=== PATIENT | female | born 1950 | race Caucasian/White ===

== ENCOUNTER 2021-04-22 21:23 | Inpatient (IN) ==
[2021-04-22 22:28] LABS: ABS Eosinophils 0.3 10^3/ul (0-0.6); ABS Lymphocytes 2.1 10^3/ul (1.0-4.8); ABS Monocytes 0.6 10^3/ul (0-0.8); ABS Neutrophils 6.4 10^3/ul (1.5-7.7); Eosinophil % 2.8 %; Hematocrit 42 % (35-47); Mean Corpuscular HGB Conc 33 g/dL (31-36); Mean Corpuscular Hemoglobin 28 pg (27-31); Mean Corpuscular Volume 85 fL (80-97); Mean Platelet Volume 10.6 fL (7.4-10.4); Platelet Count 208 10^3/uL (150-450); Red Blood Count 4.96 10^6 /uL (3.70-4.87); Red Cell Distribution Width 14 % (10-15); White Blood Count 9.4 10^3/uL (3.5-10.8)
[2021-04-22] MEDS: Metoprolol Tartrate 5 mg VIAL 5 ml VIAL (1 mg/ml) IV PRN ×2 (22:36→22:49)
[2021-04-22 22:49] LABS: ALT 18 U/L (7-52); AST 26 U/L (13-39); Albumin/Globulin Ratio 1.4 (1-3); Alkaline Phosphatase 65 U/L (35-149); Anion Gap 9 mmol/L (2-11); Blood Urea Nitrogen 16 mg/dL (6-24); CO2 Carbon Dioxide 22 mmol/L (22-32); Calcium 9.2 mg/dL (8.6-10.3); Chloride 108 mmol/L (101-111); Globulin 2.8 g/dL (2-4); Glucose 126 mg/dL (70-100); Potassium 4.2 mmol/L (3.5-5.0); Sodium 139 mmol/L (135-145); Total Protein 6.8 g/dL (6.4-8.9)
[2021-04-22 22:52] LABS: Troponin I 2.45 ng/mL (<0.03)
[2021-04-22] MEDS ORDERED: Heparin - STEMI 5,000 UNITS/ML 1 ml VIAL IV ONE (22:56)
[2021-04-22] MEDS ORDERED: Iohexol 350 (CONTRAST) 500 ML MDV IV ONE (22:56)
[2021-04-22] MEDS ORDERED: Heparin DRIP 25,000 UNITS BAG 25,000 UNITS/500 ML BAG IV SCH (23:00)
[2021-04-22] MEDS ORDERED: Heparin 5000 UNITS/ML 1 mL VIAL IV SCH (23:00)
[2021-04-23] MEDS ORDERED: Diltiazem IV BAG D5W Premix 125 MG/125 ML BAG IV SCH (01:00)
[2021-04-23] MEDS ORDERED: Digoxin IV 0.5 MG/2 ML AMP (0.25 MG/ML) IV SLOW PU ONE (01:04)
[2021-04-23] MEDS ORDERED: Furosemide 40 mg/4 ml IV VIAL IV SLOW PU ONE (02:09)
[2021-04-23] MEDS: Enoxaparin 60 MG/0.6 ML SYR SUBCUT SCH ×2 (02:18→16:46)
[2021-04-23 03:14] LABS: TSH Ultra Thyroid Stim Horm 2.17 mcIU/mL (0.34-5.60)
[2021-04-23 03:16] LABS: Free T4 1.05 ng/dL (0.61-1.12)
[2021-04-23 03:21] LABS: Total T3 129 ng/dL (87-178)
[2021-04-23] MEDS ORDERED: Midazolam 10 mg/10 ml VIAL 1 mg/ml 10 ml VIAL (10 mg) ONE (04:23)
[2021-04-23] MEDS ORDERED: fentaNYL 100 mcg/2 ml 50 MCG/ML VIAL ONE ×2 (04:23→05:30)
[2021-04-23] MEDS ORDERED: Amiodarone 360 MG IVPREMIX 360 MG/200 ML BAG IV ONE (04:24)
[2021-04-23] MEDS ORDERED: Amiodarone 150 mg IVPREMIX 0 MG/0 ML BAG IV ONE (04:24)
[2021-04-23 04:38] LABS: Hematocrit 43 % (35-47); Hemoglobin 14.1 g/dL (12.0-16.0); Mean Corpuscular HGB Conc 33 g/dL (31-36); Mean Corpuscular Hemoglobin 28 pg (27-31); Mean Corpuscular Volume 86 fL (80-97); Mean Platelet Volume 10.9 fL (7.4-10.4); Platelet Count 249 10^3/uL (150-450); Red Blood Count 5.01 10^6 /uL (3.70-4.87); Red Cell Distribution Width 14 % (10-15); White Blood Count 10.5 10^3/uL (3.5-10.8)
[2021-04-23 04:41] LABS: ABS Lymphocytes 1.9 10^3/ul (1.0-4.8); ABS Monocytes 0.6 10^3/ul (0-0.8); ABS Neutrophils 7.9 10^3/ul (1.5-7.7); Eosinophil % 0.4 %; Nucleated Red Blood Cells % 0.1
[2021-04-23 04:53] LABS: Anion Gap 12 mmol/L (2-11); Blood Urea Nitrogen 15 mg/dL (6-24); CO2 Carbon Dioxide 21 mmol/L (22-32); Calcium 9.2 mg/dL (8.6-10.3); Chloride 106 mmol/L (101-111); Glucose 119 mg/dL (70-100); Potassium 3.7 mmol/L (3.5-5.0); Sodium 139 mmol/L (135-145); eGFR CKD-EPI 95.4 (>60)
[2021-04-23] MEDS ORDERED: .Amiodarone 24HR ONLY IV Protocol Order Note IV ONE (05:44)
[2021-04-23] MEDS ORDERED: Amiodarone 360 MG IVPREMIX 360 MG/200 ML BAG IV SCH ×2 (05:55→11:55)
[2021-04-23] MEDS ORDERED: Potassium Chlor 20 meq TAB.ER PO ONE (08:00)
[2021-04-23] MEDS ORDERED: Amiodarone 400 mg TAB PO SCH (09:00)
[2021-04-23] MEDS: Amiodarone 400 mg TAB PO SCH ×3 (09:53→20:18)
[2021-04-23] MEDS: Potassium Chloride LIQUID 20 MEQ/15 ML LIQUID PO ONE ×2 (16:46→16:55)
[2021-04-24] MEDS: Enoxaparin 60 MG/0.6 ML SYR SUBCUT SCH (06:05)
[2021-04-24 06:55] LABS: ABS Eosinophils 0.4 10^3/ul (0-0.6); ABS Lymphocytes 2.4 10^3/ul (1.0-4.8); ABS Monocytes 0.7 10^3/ul (0-0.8); ABS Neutrophils 5.2 10^3/ul (1.5-7.7); Eosinophil % 4.6 %; Hematocrit 40 % (35-47); Hemoglobin 13.4 g/dL (12.0-16.0); Lymphocyte % 27.9 %; Mean Corpuscular HGB Conc 33 g/dL (31-36); Mean Corpuscular Hemoglobin 28 pg (27-31); Mean Corpuscular Volume 85 fL (80-97); Mean Platelet Volume 11.1 fL (7.4-10.4); Nucleated Red Blood Cells % 0.1; Platelet Count 180 10^3/uL (150-450); Red Blood Count 4.72 10^6 /uL (3.70-4.87); Red Cell Distribution Width 14 % (10-15); White Blood Count 8.7 10^3/uL (3.5-10.8)
[2021-04-24 07:10] LABS: Calcium 8.7 mg/dL (8.6-10.3); Potassium 4.3 mmol/L (3.5-5.0)
[2021-04-24] MEDS ORDERED: Amiodarone 400 mg TAB PO SCH (09:00)
[2021-04-24 11:45] VITALS: BP 104/86
== END 2021-04-24 13:30 | disposition home or self-care (01) | DRG 280 ==
LOC: ED 21:23 → SUATTDRO 04-23 01:56 → ICU 04-23 01:56 → MEDTELE 04-23 16:16
PROVIDERS: ADMIT Student in an Organized Health Care Education/Training Program; ATTEND Internal Medicine Critical Care Medicine

== ENCOUNTER 2022-12-10 07:01 | Observation (INO) ==
[2022-12-10] MEDS ORDERED: Ondansetron 4 mg VIAL 2 MG/ML 2 ml VIAL IV ONE (07:15)
[2022-12-10] MEDS ORDERED: Lactated Ringers 1000 ml BAG 1,000 ML IV ONE ×2 (07:15→08:39)
[2022-12-10] MEDS ORDERED: Famotidine IV 10 MG/ML 2 ml VIAL (20 mg) IV SLOW PU ONE (07:15)
[2022-12-10] MEDS ORDERED: NS 0.9% 1000 ml BAG 1,000 ML IV ONE (07:15)
[2022-12-10] MEDS ORDERED: Sucralfate 1 gm SUSP 1 GM/10 ML UDC PO ONE (07:16)
[2022-12-10] MEDS ORDERED: Morphine 4 MG/ML VIAL (1 ml) IV ONE (07:17)
[2022-12-10 07:41] LABS: ABS Basophils 0.1 10^3/uL (0.0-0.1); ABS Lymphocytes 0.6 10^3/uL (1.0-4.8); ABS Monocytes 0.8 10^3/uL (0.0-0.9); ABS Neutrophils 15.2 10^3/uL (1.5-7.6); Eosinophil % 0.1 %; Hematocrit 45.3 % (35-45); Hemoglobin 15.1 g/dL (11.5-14.3); Lymphocyte % 3.6 %; Mean Corpuscular Hemoglobin 28.6 pg (27-33); Mean Corpuscular Hgb Conc 33.3 g/dL (31-36); Mean Platelet Volume 9.8 fL (7.5-11.2); Platelet Count 154 10^3/uL (150-450); Red Blood Count 5.27 10^6/uL (3.63-4.92); Red Cell Distribution Width 14.1 % (12-17); White Blood Count 16.8 10^3/uL (3.8-11.8)
[2022-12-10 07:58] LABS: ALT 92 U/L (7-52); Albumin 4.1 g/dL (3.2-5.2); Albumin/Globulin Ratio 1.3 (1-3); Alkaline Phosphatase 71 U/L (35-149); Blood Urea Nitrogen 16 mg/dL (6-24); C Reactive Protein 6.17 mg/L (<8.01); CO2 Carbon Dioxide 22 mmol/L (22-32); Chloride 105 mmol/L (101-111); Creatinine, Serum 0.73 mg/dL (0.51-0.95); Globulin 3.1 g/dL (2-4); Glucose 137 mg/dL (70-100); Sodium 140 mmol/L (135-145); Total Protein 7.2 g/dL (6.4-8.9); eGFR CKD-EPI 87.3 (>60)
[2022-12-10 08:00] LABS: Anion Gap 13 mmol/L (2-16)
[2022-12-10 08:03] LABS: High Sens Troponin Baseline 6 pg/mL (<15)
[2022-12-10] MEDS ORDERED: Iohexol 350 (CONTRAST) 500 ML MDV IV ONE (08:12)
[2022-12-10 08:13] LABS: Lipase 6141 U/L (11.0-82.0)
[2022-12-10 09:00] LABS: High Sensitivity Troponin 1 Hr 7 pg/mL (<15)
[2022-12-10 09:38] LABS: Potassium, Whole Blood 3.9 mmol/L (3.4-4.5)
[2022-12-10] MEDS ORDERED: Morphine 4 MG/ML VIAL (1 ml) IV PRN (10:08)
[2022-12-10] MEDS ORDERED: Piperacillin/Tazobac 3.375 BAG 3.375 GM/100 ML BAG IV ONE (10:10)
[2022-12-10] MEDS ORDERED: Morphine 2 MG/ML SYRINGE IV PRN ×2 (16:08→16:11)
[2022-12-10] MEDS ORDERED: Ondansetron 4 mg VIAL 2 MG/ML 2 ml VIAL IV PRN (17:16)
[2022-12-10] MEDS ORDERED: NS 0.9% 1000 ml BAG 1,000 ML IV SCH (17:30)
[2022-12-10 17:35] LABS: Direct Bilirubin Redraw 0.4 mg/dL (0.03-0.18); HDL Cholesterol 62.2 mg/dL; Magnesium 1.6 mg/dL (1.9-2.7)
[2022-12-10] MEDS ORDERED: Magnesium Sulfate 2 gm BAG 2 GM/50 ML BAG IVPB ONE (18:11)
[2022-12-10] MEDS: Enoxaparin 40 MG/0.4 ML SYR SUBCUT SCH (18:43)
[2022-12-11 06:11] LABS: ABS Eosinophils 0.1 10^3/uL (0.0-0.5); ABS Lymphocytes 1.9 10^3/uL (1.0-4.8); ABS Monocytes 0.5 10^3/uL (0.0-0.9); ABS Neutrophils 9.5 10^3/uL (1.5-7.6); Eosinophil % 1.2 %; Hematocrit 39.8 % (35-45); Hemoglobin 13.2 g/dL (11.5-14.3); Lymphocyte % 15.6 %; Mean Corpuscular Hemoglobin 28.7 pg (27-33); Mean Corpuscular Hgb Conc 33.1 g/dL (31-36); Mean Corpuscular Volume 86.5 fL (80-97); Mean Platelet Volume 10.4 fL (7.5-11.2); Platelet Count 129 10^3/uL (150-450); Red Cell Distribution Width 14.4 % (12-17)
[2022-12-11 06:30] LABS: Albumin 3.5 g/dL (3.2-5.2); Albumin/Globulin Ratio 1.3 (1-3); Calcium 8.3 mg/dL (8.6-10.3); Creatinine, Serum 0.69 mg/dL (0.51-0.95); Globulin 2.6 g/dL (2-4); Magnesium 2.1 mg/dL (1.9-2.7); Potassium 3.8 mmol/L (3.5-5.0); Total Bilirubin 1.6 mg/dL (0.2-1.0); Total Protein 6.1 g/dL (6.4-8.9); eGFR CKD-EPI 92.2 (>60)
[2022-12-11] MEDS ORDERED: Aspirin EC 81 mg TAB.EC (enteric coated) PO SCH (09:00)
[2022-12-11] MEDS: Enoxaparin 40 MG/0.4 ML SYR SUBCUT SCH (17:26)
[2022-12-12 06:44] LABS: ABS Eosinophils 0.3 10^3/uL (0.0-0.5); ABS Lymphocytes 1.2 10^3/uL (1.0-4.8); ABS Monocytes 0.5 10^3/uL (0.0-0.9); ABS Neutrophils 6.1 10^3/uL (1.5-7.6); Hematocrit 36.2 % (35-45); Lymphocyte % 14.4 %; Mean Corpuscular Hemoglobin 28.6 pg (27-33); Mean Corpuscular Hgb Conc 33.2 g/dL (31-36); Mean Corpuscular Volume 86.1 fL (80-97); Mean Platelet Volume 10.4 fL (7.5-11.2); Platelet Count 112 10^3/uL (150-450); Red Blood Count 4.21 10^6/uL (3.63-4.92); Red Cell Distribution Width 14.1 % (12-17); White Blood Count 8.2 10^3/uL (3.8-11.8)
[2022-12-12 06:54] LABS: Albumin 3.3 g/dL (3.2-5.2); Albumin/Globulin Ratio 1.3 (1-3); Calcium 8.2 mg/dL (8.6-10.3); Creatinine, Serum 0.56 mg/dL (0.51-0.95); Globulin 2.6 g/dL (2-4); Potassium 3.9 mmol/L (3.5-5.0); Total Bilirubin 1.2 mg/dL (0.2-1.0); Total Protein 5.9 g/dL (6.4-8.9); eGFR CKD-EPI 96.9 (>60)
[2022-12-12 13:21] VITALS: BP 121/72
[2022-12-12] MEDS ORDERED: Aspirin EC 81 mg TAB.EC (enteric coated) PO SCH (21:00)
== END 2022-12-12 14:20 | disposition home or self-care (01) ==
LOC: EDHOLD 07:01 → ED 07:01 → SUATTDRO 15:35 → EDHOLD 17:54 → MED 17:54
PROVIDERS: ADMIT Internal Medicine; ATTEND Internal Medicine